=== PATIENT | male | born 1985 | race Caucasian/White ===

== ENCOUNTER 2017-04-12 16:31 | Emergency (ER) | payer SELFPAY ==
[~2017-04-12] VITALS: Ht 172.7 cm; Wt 120.2 kg
[2017-04-12] MEDS ORDERED: LORATADINE 10MG10 M1 PO (16:42)
[2017-04-12] MEDS ORDERED: QUETIAPINE FUMA50 MG PO (16:43)
[2017-04-12] MEDS ORDERED: SERTRALINE 100100 MG PO (16:43)
[2017-04-12] MEDS ORDERED: WELLBUTRIN 150150 MG PO (16:43)
[2017-04-12] MEDS ORDERED: CYCLOBENZAPRINE10 MG PO (16:44)
[2017-04-12] MEDS ORDERED: LISINOPRIL/HCTZ1 TA3 FT (16:44)
--- NOTE | 2017-04-12 16:55 | Emergency Room Report ---
History of Present Illness Time Seen by [id number] Presenting Problem in Triage Pt arrived:Walked Presenting Problem:PT WAS DIAGNOSED WITH SHINGLES LAST WEEK AND ADVISES THEY ARE NOW GOING ONTO HIS FACE AND INTO HIS RIGHT EYE Onset of symptoms date/time:/ or onset unknown for:MEDICAL HX UNKNOWN Treatment Prior to Arrival: [facility] Provided by: Sepsis Risk Assessment: Temp: 98.1 B/P: 156/100 MAP: 118 Pulse: 113 Resp: 16 Recent fever? N Clinical Suspician of Infection? N Mental Status: 1 - Regular (Normal Baseline) Sepsis Risk:Low Sepsis Risk Have you (or family members/close friends) recently traveled outside the [place]? N If Yes, where/when: Have you had exposure to infectious disease within the past month? N TB? Other? Specify: Drainage from right eye with pain x one week; diagnosed with shingles last week. No prescriptions currently. Wears glasses. ALLERGIES Coded Allergies: cefaclor (From CECLOR) (Mild, 04/12/17) Home Medications Reported Medications Loratadine (Loratadine 10MG Tablet) 10 MG PO DAILY Sertraline Hydrochloride (Sertraline 100MG) 100 MG PO DAILY Bupropion HCl (Bupropion HCl Sr 150mg) 150 MG PO BID Quetiapine Fumarate (Quetiapine 50MG) 50 MG PO DAILY Cyclobenzaprine Hcl (Cyclobenzaprine 10MG) 10 MG PO BID Lisinopril & Hctz (Lisinopril-Hctz 10-12.5 MG Tab) 1 TAB FT DAILY History Medical History General CAD? No Angina: No [place]: No Hypertension? No Hyperlipidemia? No CHF? No DVT? No PE? No COPD? No Asthma? No Anemia? No GERD? No Gastric ulcers? No GI Bleed? No Hernia? No Thyroid Problems? No Hypothyroidism? No CVA? No Seizures? No Diabetes? No Renal Insuffiency? No End Stage Renal Disease? No UTI? No Stones? No BPH? No GB Disease: No Nephritic Syndrome? No Asplenia? No Hepatitis? No Sickle Cell Disease? No Arthritis? No Migraines? No Cataracts? No Glaucoma? No MRSA? No HIV? No TB? No Anxiety? No Depression? No Cancer? No More? No Immunization Hx DT/Tetanus 1-4 Years Ago Surgical Hx Previous Surgery?Y RIGHT FOOT Social History Smoking Hx Smoker: Current Every Day Smoker Tobacco: Yes Type Cigarettes Alcohol Alcohol: No Review of Systems All Other Systems Reviewed and Negative Eyes drainage, photophobia Physical Exam Vital Signs Vital Signs Date Time Temp Pulse Resp B/P Pulse O2 O2 Flow FiO2 Ox Delivery Rate 04/12 1702 16 04/12 1639 98.1 113 16 156/100 97 General Appearance normal appearance, WD/WN, mild distress Eye Exam - right eye eyelid inflammation, right eye photophobia, right eye other ( injected; cloudy,no dendrites), bilateral eye PERRL, bilateral eye EOMI Ear, Nose, Throat hearing grossly normal, obvious confluent vesicles over R V1/ Trigeminal nerve distribution c/w acute varicella zoster with lid and ocular involvement. No secondary infection noted. Neck normal inspection, non-tender, supple Respiratory Status Yes: trachea midline. No: respiratory distress. 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 Yes Vaibhav was queried for this patient? Yes Reference #: [id number] Risks/benefits of using a controlled substance for treatment were discussed w/pt by me Results/Orders Current Medication Orders Sig/Rg Start time Last Medication Dose Route Stop Time Status Admin Hydrocodone Bitart/ 0 .STK-MED ONE 04/12 1703 DC Acetaminophen PO Fluorescein Sodium 1 EACH ONCE ONE 04/12 170 DC 04/12 OP 04/12 170 1701 Hydrocodone Bitart/ 1 TAB ONCE ONE 04/12 1700 DC 04/12 Acetaminophen PO 04/12 170 1702 Tetracaine HCl See Dose ONCE ONE 04/12 1700 DC 04/12 Insts (1) OP 04/12 1701 1701 Miscellaneous 0 .STK-MED ONE 04/12 1646 DC XX Dose Instructions: (1)Tetracaine HCl: DOSE = 1 - 2 DROPS Consult MD Physician Consult Time Called 1702 Reason Pt. Condition, Opthalmology eval/care Comments Dr. Lim optometry will see emergently now in his office. Departure Departure Time of Disposition 1706 Disposition DC Home or Self Care(routine) Clinical Impression Primary Impression: Varicella keratitis Secondary Impressions: Shingles Qualifiers: Herpes zoster complications: with ocular involvement Herpes zoster ocular complication detail: conjunctivitis Qualified Code: B02.31 - Zoster conjunctivitis Condition STABLE Patient Instructions Shingles Additional Instructions Valtrex, Lortab for pain, go to [facility] to see Dr. Lim RIGHT NOW due to eye involvement. This needs to be addressed RIGHT NOW. Discharge Counseling Counseled pt/family regarding diagnosis, medications/RX, home care, follow up needs Prescriptions Current Visit Scripts HYDROCODONE/ACETAMINOPHEN (Lortab 10-325 (generic) Tablet) 1-2 TAB PO Q6HP PRN PAIN #20 TAB VALACYCLOVIR HCL (Valtrex) 500 MG PO TID #30 TAB Ref 1 ED Critical Care Critical Care No at 1710
--- NOTE | 2017-04-12 16:55 | Emergency Room Report ---
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 N Clinical Suspician of Infection? N Mental Status: 1 - Regular (Normal Baseline) Sepsis Risk:Low Sepsis Risk Have you (or family members/close friends) recently traveled outside the [place]? N If Yes, where/when: Have you had exposure to infectious disease within the past month? N TB? Other? Specify: Drainage from right eye with pain x one week; diagnosed with shingles last week. No prescriptions currently. Wears glasses. ALLERGIES Coded Allergies: cefaclor (From CECLOR) (Mild, 04/12/17) Home Medications Reported Medications Loratadine (Loratadine 10MG Tablet) 10 MG PO DAILY Sertraline Hydrochloride (Sertraline 100MG) 100 MG PO DAILY Bupropion HCl (Bupropion HCl Sr 150mg) 150 MG PO BID Quetiapine Fumarate (Quetiapine 50MG) 50 MG PO DAILY Cyclobenzaprine Hcl (Cyclobenzaprine 10MG) 10 MG PO BID Lisinopril & Hctz (Lisinopril-Hctz 10-12.5 MG Tab) 1 TAB FT DAILY History Medical History General CAD? No Angina: No VA: No Hypertension? No Hyperlipidemia? No CHF? No DVT? No PE? No COPD? No Asthma? No Anemia? No GERD? No Gastric ulcers? No GI Bleed? No Hernia? No Thyroid Problems? No Hypothyroidism? No CVA? No Seizures? No Diabetes? No Renal Insuffiency? No End Stage Renal Disease? No UTI? No Stones? No BPH? No GB Disease: No Nephritic Syndrome? No Asplenia? No Hepatitis? No Sickle Cell Disease? No Arthritis? No Migraines? No Cataracts? No Glaucoma? No MRSA? No HIV? No TB? No Anxiety? No Depression? No Cancer? No More? No Immunization Hx DT/Tetanus 1-4 Years Ago Surgical Hx Previous Surgery?Y RIGHT FOOT Social History Smoking Hx Smoker: Current Every Day Smoker Tobacco: Yes Type Cigarettes Alcohol Alcohol: No Review of Systems All Other Systems Reviewed and Negative Eyes drainage, photophobia Physical Exam Vital Signs Vital Signs Date Time Temp Pulse Resp B/P Pulse O2 O2 Flow FiO2 Ox Delivery Rate 04/12 1702 16 04/12 1639 98.1 113 16 156/100 97 General Appearance normal appearance, WD/WN, mild distress Eye Exam - right eye eyelid inflammation, right eye photophobia, right eye other ( injected; cloudy,no dendrites), bilateral eye PERRL, bilateral eye EOMI Ear, Nose, Throat hearing grossly normal, obvious confluent vesicles over R V1/ Trigeminal nerve distribution c/w acute varicella zoster with lid and ocular involvement. No secondary infection noted. Neck normal inspection, non-tender, supple Respiratory Status Yes: trachea midline. No: respiratory distress. 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 Yes Vaibhav was queried for this patient? Yes Reference #: [id number] Risks/benefits of using a controlled substance for treatment were discussed w/pt by me Results/Orders Current Medication Orders Sig/Rg Start time Last Medication Dose Route Stop Time Status Admin Hydrocodone Bitart/ 0 .STK-MED ONE 04/12 1703 DC Acetaminophen PO Fluorescein Sodium 1 EACH ONCE ONE 04/12 170 DC 04/12 OP 04/12 170 1701 Hydrocodone Bitart/ 1 TAB ONCE ONE 04/12 1700 DC 04/12 Acetaminophen PO 04/12 170 1702 Tetracaine HCl See Dose ONCE ONE 04/12 1700 DC 04/12 Insts (1) OP 04/12 1701 1701 Miscellaneous 0 .STK-MED ONE 04/12 1646 DC XX Dose Instructions: (1)Tetracaine HCl: DOSE = 1 - 2 DROPS Consult MD Physician Consult Time Called 1702 Reason Pt. Condition, Opthalmology eval/care Comments Dr. Lim optometry will see emergently now in his office. Departure Departure Time of Disposition 1706 Disposition DC Home or Self Care(routine) Clinical Impression Primary Impression: Varicella keratitis Secondary Impressions: Shingles Qualifiers: Herpes zoster complications: with ocular involvement Herpes zoster ocular complication detail: conjunctivitis Qualified Code: B02.31 - Zoster conjunctivitis Condition STABLE Patient Instructions Shingles Additional Instructions Valtrex, Lortab for pain, go to [facility] to see Dr. Lim RIGHT NOW due to eye involvement. This needs to be addressed RIGHT NOW. Discharge Counseling Counseled pt/family regarding diagnosis, medications/RX, home care, follow up needs Prescriptions Current Visit Scripts HYDROCODONE/ACETAMINOPHEN (Lortab 10-325 (generic) Tablet) 1-2 TAB PO Q6HP PRN PAIN #20 TAB VALACYCLOVIR HCL (Valtrex) 500 MG PO TID #30 TAB Ref 1 ED Critical Care Critical Care No at 1718
[2017-04-12] MEDS ORDERED: HYDROCODONE/ACE1 TA5 PO (17:09)
[2017-04-12] MEDS ORDERED: VALTREX500 MG PO (17:10)
[2017-04-12 17:15] VITALS: BP 156/100
--- OUTSIDE RECORDS SUMMARY | 2017-04-12 17:15 | External Medical Summary Rpt | CCD ---
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 Name Role Phone [facility] Unavailable Unavailable [facility]ORATORY [facility], [facility] Unavailable Un[facility], PEND[facility] SALE TO [facility] Unavailable Unavailable [facility]STIC SE, [facility] Unavailable Unavailable TRANSPORTATION SER, [facility] Unavailable Unavailable HOLDINGS, [facility] DIANE BURLESON, Unavailable Unavailable DIANE BURLESON [facility], Unavailable Unavailable [facility] Unavailable Unavailable DAY [facility], [facility] Unavailable Unavailable #5, [facility] Purpose Continuity of Care Document - 06-09-2007 through 2016 Problems Code Diagnosis DOS Provider Status [id number] SPONDYLOSIS 01-04-2017 [facility] W/O H MYELOPATH/R ORTHOPAEDIC ADICULOPATH RADHA Y LUMB RGN M4806 SPINAL 01-04-2017 [facility] STENOSIS H LUMBAR [facility]IC REGION RADHA M545 LOW BACK 01-04-2017 [facility] PAIN H ORTHOPAEDIC RADHA R69 ILLNESS 01-04-2017 [facility] UNSPECIFIED TRANSPORTAT ION SER [id number] ELEVATED 12-17-2016 [facility] WHITE BLOOD TEGAN CELL COUNT HOLDINGS UNSPECIFIED G8929 OTHER 12-17-2016 [facility] CHRONIC TEGAN PAIN HOLDINGS Z139 ENCOUNTER 12-17-2016 [facility] FOR TEGAN SCREENING HOLDINGS UNSPECIFIED 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 [facility] R569 UNSPECIFIED 10-14-2016 [facility] DAY [facility] [id number] STRAIN 09-15-2016 [facility] MUSCLE H FASCIA & ORTHOPAEDIC TENDON LOW CTR BACK SUBSQT [id number] STRAIN 09-11-2016 [facility] MUSCLE H FASCIA & ORTHOPAEDIC TENDON LOW CTR BACK INITIAL Z6838 BODY MASS 06-23-2016 [facility] INDEX BMI [place] 38.0-38.9 LLC ADULT M546 PAIN IN 06-18-2016 [facility] SPINE DIAGNOSTIC SE I10 ESSENTIAL 06-16-2016 [facility] PRIMARY [place] HYPERTENSIO LLC N G4700 INSOMNIA 04-21-2016 [facility] UNSPECIFIED [facility] [id number] MUSCLE 03-11-2016 [facility] SPASM OF [place] BACK LLC R0600 DYSPNEA 03-11-2016 [facility] UNSPECIFIED [facility] [id number] OTHER LONG 02-05-2016 [facility] TERM [place] CURRENT LLC DRUG THERAPY Z720 TOBACCO USE 01-17-2016 [facility] [place] LLC Z0000 ENCOUNTER 10-10-2015 [facility] GEN ADULT [place] MED EXAM [facility] W/O ABNORMAL FIND E669 OBESITY 09-05-2015 [facility] UNSPECIFIED [facility]INGS R1030 LOWER 07-15-2015 [facility] ABDOMINAL [facility] PAIN LABORATORY UNSPECIFIED IN R5381 OTHER 06-05-2015 [facility] MALAISE [facility] 2959 UNSPECIFIED 03-06-2015 [facility] ADULT DAY IA CARE 79093 PAIN IN 06-09-2007 SARAH BETH, JOINT, DIANE F [facility] Medications Na ND Rx Da Fi Fi Am Da Di Ph RX Ph St me C No te ll ll ou ys ag ar # ys at rm s nt no ma ic us Or Da si cy ia de te s n re d LO 16 07 09 6 30 30 TO 95 MO Ac RA 71 -2 -2 0. TA 72 RT ti TA 40 6- 5- 00 L 68 ON ve DI 48 20 20 0 CA NE 20 17 17 RE RO 3 BI 10 PH N AR L MG MA CY TA BL #5 ET LO 16 07 08 6 30 30 TO 95 MO Ac RA 71 -2 -2 0. TA 72 RT ti TA 40 6- 3- 00 L 68 ON ve DI 48 20 20 0 CA NE 20 17 17 RE RO 3 BI 10 PH N AR L MG MA CY TA BL #5 ET LO 16 07 07 6 30 30 TO 95 MO Ac RA 71 -2 -2 0. TA 72 RT ti TA 40 6- 6- 00 L 68 ON ve DI 48 20 20 0 CA NE 20 17 17 RE RO 3 BI 10 PH N AR L MG MA CY TA BL #5 ET LO 16 01 06 6 30 30 TO 93 MO Ac RA 71 -1 -3 0. TA 84 RT ti TA 40 7- 0- 00 L 28 ON ve DI 48 20 20 0 CA NE 20 17 17 RE RO 3 BI 10 PH N AR L MG MA CY TA BL #5 ET LO 16 01 05 6 30 30 TO 93 MO Ac RA 71 -1 -3 0. TA 84 RT ti TA 40 7- 0- 00 L 28 ON ve DI 48 20 20 0 CA NE 20 17 17 RE RO 3 BI 10 PH N AR L MG MA CY TA BL #5 ET LO 16 01 05 6 30 30 TO 93 MO Ac RA 71 -1 -0 0. TA 84 RT ti TA 40 7- 3- 00 L 28 ON ve DI 48 20 20 0 CA NE 20 17 17 RE RO 3 BI 10 PH N AR L MG MA CY TA BL #5 ET LO 16 01 04 6 30 30 TO 93 MO Ac RA 71 -1 -0 0. TA 84 RT ti TA 40 7- 7- 00 L 28 ON ve DI 48 20 20 0 CA NE 20 17 17 RE RO 3 BI 10 PH N AR L MG MA CY TA BL #5 ET LO 16 01 03 6 30 30 TO 93 MO Ac RA 71 -1 -1 0. TA 84 RT ti TA 40 7- 4- 00 L 28 ON ve DI 48 20 20 0 CA NE 20 17 17 RE RO 3 BI 10 PH N AR L MG MA CY TA BL #5 ET LO 16 01 02 6 30 30 TO 93 MO Ac RA 71 -1 -1 0. TA 84 RT ti TA 40 7- 4- 00 L 28 ON ve DI 48 20 20 0 CA NE 20 17 17 RE RO 3 BI 10 PH N AR L MG MA CY TA BL #5 ET LO 16 01 01 6 30 30 TO 93 MO Ac RA 71 -1 -1 0. TA 84 RT ti TA 40 7- 7- 00 L 28 ON ve DI 48 20 20 0 CA NE 20 17 17 RE RO 3 BI 10 PH N AR L MG MA CY TA BL #5 ET LO 16 07 11 6 28 28 TO 92 MO Ac RA 71 -1 -3 0. TA 05 RT ti TA 40 1- 0- 00 L 40 ON ve DI 48 20 20 0 CA NE 20 16 16 RE RO 3 BI 10 PH N AR L MG MA CY TA BL #5 ET LO 16 07 08 6 10 1 TO 92 MO Ac RA 71 -1 -3 .0 TA 05 RT ti TA 40 1- 1- 00 L 40 ON ve DI 48 20 20 CA NE 20 16 16 RE RO 3 BI 10 PH N AR L MG MA CY TA BL #5 ET LO 16 07 08 6 30 30 TO 92 MO Ac RA 71 -1 -0 0. TA 05 RT ti TA 40 1- 4- 00 L 40 ON ve DI 48 20 20 0 CA NE 20 16 16 RE RO 3 BI 10 PH N AR L MG MA CY TA BL #5 ET LO 16 07 07 6 28 26 TO 92 MO Ac RA 71 -1 -1 0. TA 05 RT ti TA 40 1- 1- 00 L 40 ON ve DI 48 20 20 0 CA NE 20 16 16 RE RO 3 BI 10 PH N AR L MG MA CY TA BL #5 ET LO 16 01 06 5 28 28 TO 90 MO Ac RA 71 -2 -1 0. TA 47 RT ti TA 40 8- 0- 00 L 38 ON ve DI 48 20 20 0 CA NE 20 16 16 RE RO 3 BI 10 PH N AR L MG MA CY TA BL #5 ET LO 16 01 05 5 28 28 TO 90 MO Ac RA 71 -2 -1 0. TA 47 RT ti TA 40 8- 1- 00 L 38 ON ve DI 48 20 20 0 CA NE 20 16 16 RE RO 3 BI 10 PH N AR L MG MA CY TA BL #5 ET LO 45 01 04 5 28 28 TO 90 MO Ac RA 80 -2 -1 0. TA 47 RT ti TA 20 8- 6- 00 L 38 ON ve DI 65 20 20 0 CA NE 08 16 16 RE RO 7 BI 10 PH N AR L MG MA CY TA BL #5 ET LO 45 01 03 5 28 28 TO 90 MO Ac RA 80 -2 -1 0. TA 47 RT ti TA 20 8- 9- 00 L 38 ON ve DI 65 20 20 0 CA NE 08 16 16 RE RO 7 BI 10 PH N AR L MG MA CY TA BL #5 ET LO 45 01 02 5 28 28 TO 90 MO Ac RA 80 -2 -2 0. TA 47 RT ti TA 20 8- 0- 00 L 38 ON ve DI 65 20 20 0 CA NE 08 16 16 RE RO 7 BI 10 PH N AR L MG MA CY TA BL #5 ET LO 45 01 01 5 28 5 TO 90 MO Ac RA 80 -2 -2 0. TA 47 RT ti TA 20 8- 8- 00 L 38 ON ve DI 65 20 20 0 CA NE 08 16 16 RE RO 7 BI 10 PH N AR L MG MA CY TA BL #5 ET LO 45 09 12 3 28 28 TO 89 MO Ac RA 80 -0 -2 0. TA 14 RT ti TA 20 8- 3- 00 L 49 ON ve DI 65 20 20 0 CA NE 08 15 15 RE RO 7 BI 10 PH N AR L MG MA CY TA BL #5 ET LO 45 09 11 3 28 28 TO 89 MO Ac RA 80 -0 -2 0. TA 14 RT ti TA 20 8- 7- 00 L 49 ON ve DI 65 20 20 0 CA NE 08 15 15 RE RO 7 BI 10 PH N AR L MG MA CY TA BL #5 ET LO 45 09 10 3 28 28 TO 89 MO Ac RA 80 -0 -3 0. TA 14 RT ti TA 20 8- 1- 00 L 49 ON ve DI 65 20 20 0 CA NE 08 15 15 RE RO 7 BI 10 PH N AR L MG MA CY TA BL #5 ET LO 45 09 09 3 30 30 TO 89 MO Ac RA 80 -2 -2 0. TA 14 RT ti TA 20 1- 1- 00 L 49 ON ve DI 65 20 20 0 CA NE 08 15 15 RE RO 7 BI 10 PH N AR L MG MA CY TA BL #5 ET LO 45 08 08 0 30 30 TO 89 MO Ac RA 80 -2 -2 0. TA 05 RT ti TA 20 8- 8- 00 L 19 ON ve DI 65 20 20 0 CA NE 08 15 15 RE RO 7 BI 10 PH N AR L MG MA CY TA BL #5 ET
--- OUTSIDE RECORDS SUMMARY | 2017-04-12 17:15 | External Medical Summary Rpt | CCD ---
Author Author , LUZ MARIA LOERA Address Unknown Phone [email or web address] Care Team Providers Care Roll Edge Machine Operator Name Role Phone [facility] Unavailable Unavailable LABORATORY IN, [facility] Unavailable Un[facility], [facility] Unavailable Unavailable DIAGNOSTIC SE, [facility] Unavailable Unavailable TRANSPORTATION SER, [facility] Unavailable Unavailable HOLDINGS, [facility] DIANE BURLESON, Unavailable Unavailable DIANE BURLESON [facility], Unavailable Unavailable [facility] Unavailable Unavailable DAY CARE, [facility] Unavailable Unavailable #5, [facility] Purpose Continuity of Care Document - 06-09-2007 through 2016 Problems Code Diagnosis DOS Provider Status [id number] SPONDYLOSIS 01-04-2017 [facility] W/O H MYELOPATH/R ORTHOPAEDIC ADICULOPATH RADHA Y LUMB RGN M4806 SPINAL 01-04-2017 [facility] STENOSIS H LUMBAR [facility]THOPAEDIC REGION RADHA M545 LOW BACK 01-04-2017 [facility] PAIN H ORTHOPAEDIC RAHDA R69 ILLNESS 01-04-2017 [facility] UNSPECIFIED TRANSPORTAT ION SER R38691 ELEVATED 12-17-2016 [facility] WHITE BLOOD TEGAN CELL COUNT HOLDINGS UNSPECIFIED G8929 OTHER 12-17-2016 [facility] CHRONIC TEGAN PAIN HOLDINGS Z139 ENCOUNTER 12-17-2016 [facility] FOR TEGAN SCREENING HOLDINGS UNSPECIFIED 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 [facility] CTR R569 UNSPECIFIED 10-14-2016 [facility] CON[facility] ADULT DAY CARE [id number] STRAIN 09-15-2016 [facility] MUSCLE H FASCIA & ORTHOPAEDIC TENDON LOW CTR BACK SUBSQT [id number] STRAIN 09-11-2016 [facility] MUSCLE H FASCIA & ORTHOPAEDIC TENDON LOW CTR BACK INITIAL Z6838 BODY MASS 06-23-2016 [facility] INDEX BMI [place] 38.0-38.9 LLC ADULT M546 PAIN IN 06-18-2016 [facility] SPINE DIAGNOSTIC SE I10 ESSENTIAL 06-16-2016 [facility] PRIMARY [place] HYPERTENSIO LLC N G4700 INSOMNIA 04-21-2016 [facility] UNSPECIFIED [facility] [id number] MUSCLE 03-11-2016 [facility] SPASM OF [place] BACK LLC R0600 DYSPNEA 03-11-2016 [facility] UNSPECIFIED [facility] [id number] OTHER LONG 02-05-2016 [facility] TERM [place] CURRENT LLC DRUG THERAPY Z720 TOBACCO USE 01-17-2016 [facility] [place] LLC Z0000 ENCOUNTER 10-10-2015 [facility] GEN ADULT [place] MED EXAM [facility] W/O ABNORMAL FIND E669 OBESITY 09-05-2015 LAB [facility] UNSPECIFIED [facility] R1030 LOWER 07-15-2015 [facility] ABDOM[facility]AL [facility] PAIN LABORATORY UNSPECIFIED IN R5381 OTHER 06-05-2015 [facility] MALAISE [facility] 2959 UNSPECIFIED 03-06-2015 [facility] ADULT DAY IA CARE 55051 PAIN IN 06-09-2007 SARAH BETH, JOINT, DIANE [...]
--- OUTSIDE RECORDS SUMMARY | 2017-04-12 17:15 | External Medical Summary Rpt | CCD ---
Author Author , LUZ MARIA LOERA Address Unknown Phone [email or web address] Care Team Providers Care Refinery Operator Coking Name Role Phone [facility] Unavailable Unavailable LABORATORY IN, [facility] Unavailable Unavailable [facility], [facility] Unavailable Unavailable DIAGNOSTIC SE, [facility] Unavailable Unavailable TRANSPORTATION SER, [facility] Unavailable Unavailable HOLDINGS, [facility]INGS DIANE BURLESON, Unavailable Unavailable DIANE BURLESON [facility], Unavailable Unavailable [facility]IN [facility] Unavailable Unavailable DAY CARE, [facility] Unavailable Unavailable #5, [facility] Purpose Continuity of Care Document - 06-09-2007 through 2016 Problems Code Diagnosis DOS Provider Status [id number] SPONDYLOSIS 01-04-2017 [facility] W/O H MYELOPATH/R ORTHOPAEDIC ADICULOPATH RADHA Y LUMB RGN M4806 SPINAL 01-04-2017 [facility] STENOSIS H LUMBAR ORTHOPAEDIC REGION RADHA M545 LOW BACK 01-04-2017 [facility] PAIN H ORTHOPAEDIC RADHA R69 ILLNESS 01-04-2017 [facility] UNSPECIFIED TRANSPORTAT ION SER O68039 ELEVATED 12-17-2016 [facility] WHITE BLOOD TEGAN CELL COUNT HOLDINGS UNSPECIFIED G8929 OTHER 12-17-2016 LAB [facility] CHRONIC TEGAN PAIN HOLDINGS Z139 ENCOUNTER 12-17-2016 LAB [facility] FOR TEGAN SCREENING HOLDINGS UNSPECIFIED 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 [facility]IC CTR R569 UNSPECIFIED 10-14-2016 [facility]ULT DAY CARE [id number] STRAIN 09-15-2016 [facility] MUSCLE H FASCIA & ORTHOPAEDIC TENDON LOW CTR BACK SUBSQT [id number] STRAIN 09-11-2016 [facility] MUSCLE H FASCIA & ORTHOPAEDIC TENDON LOW CTR BACK INITIAL Z6838 BODY MASS 06-23-2016 [facility] INDEX BMI [place] 38.0-38.9 LLC ADULT M546 PAIN IN 06-18-2016 [facility] SPINE DIAGNOSTIC SE I10 ESSENTIAL 06-16-2016 [facility] PRIMARY [place] HYPERTENSIO LLC N G4700 INSOMNIA 04-21-2016 [facility] UNSPECIFIED [facility] Z84066 MUSCLE 03-11-2016 [facility] SPASM OF [place] BACK LLC R0600 DYSPNEA 03-11-2016 [facility] UNSPECIFIED [facility] X52504 OTHER LONG 02-05-2016 [facility] TERM [place] CURRENT LLC DRUG THERAPY Z720 TOBACCO USE 01-17-2016 [facility] Z0000 ENCOUNTER 10-10-2015 [facility] GEN ADULT [place] MED EXAM LLC W/O ABNORMAL FIND E669 OBESITY 09-05-2015 LAB [facility] UNSPECIFIED [facility] HOLDINGS R1030 LOWER 07-15-2015 [facility] ABDOMINAL [facility]ICAL PAIN LABORATORY UNSPECIFIED IN R5381 OTHER 06-05-2015 [facility] MALAISE [facility] 2959 UNSPECIFIED 03-06-2015 [facility] ADULT DAY IA CARE 38424 PAIN IN 06-09-2007 SARAH BETH, JOINT, DIANE [...]
--- OUTSIDE RECORDS SUMMARY | 2017-04-12 17:15 | External Medical Summary Rpt | CCD ---
Author Author , LUZ MARIA LOERA Address Unknown Phone [email or web address] Providers Care Home Restoration Service Supervisor Name Role Phone [facility], [facility] Un[facility], [facility], [facility] Unavailable [facility]available [facility], [facility] Unavailable Unavailable [facility], [facility] Unavailable Unavailable [facility], [facility] DIANE BURLESON, Unavailable Unavailable DIANE BURLESON [facility], Unavailable Unavailable MARTIN [facility] Unavailable [facility]available DAY CARE, [facility] Unavailable Unavailable #[facility], [facility] Purpose Continuity of Care Document - 06-09-2007 through 2016 Problems Code Diagnosis DOS Provider Status [id number] SPONDYLOSIS 01-04-2017 [facility] W/O H MYELOPATH/R ORTHOPAEDIC ADICULOPATH RAD[facility] Y LUMB RGN M4806 SPINAL 01-04-2017 [facility] STENOSIS H LUMBAR [facility]IC REGION [facility] M545 LOW BACK 01-04-2017 [facility] PAIN H [facility] R69 ILLNESS 01-04-2017 [facility] UNSPECIFIED TRANSPORTAT ION SER U13893 ELEVATED 12-17-2016 [facility] WHITE BLOOD TEGAN CELL COUNT [facility] UNSPECIFIED G8929 OTHER 12-17-2016 [facility] CHRONIC TEGAN PAIN HOLDINGS Z139 ENCOUNTER 12-17-2016 [facility] FOR TEGAN SCREENING HOLDINGS UNSPECIFIED 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 [facility]OP[facility]EDIC CTR R569 UNSPECIFIED 10-14-2016 [facility] ADULT DAY CARE [id number] STRAIN 09-15-2016 [facility] MUSCLE H FASCIA & ORTHOPAEDIC TENDON LOW CTR BACK SUBSQT [id number] STRAIN 09-11-2016 [facility] MUSCLE H FASCIA & ORTHOPAEDIC TENDON LOW CTR BACK INITIAL Z6838 BODY MASS 06-23-2016 [facility] INDEX [facility] [place] 38.0-38.9 [facility] ADULT M546 PAIN IN 06-18-2016 [facility]NO[facility] SE I10 ESSENTIAL 06-16-2016 [facility] PRIMARY [place] [facility]YP[facility]EN[facility] N G4700 INSOMNIA 04-21-2016 [facility] UNSPECIFIED [facility] D73168 MUSCLE 03-11-2016 [facility] [place] BACK [facility] R0600 DYSPNEA 03-11-2016 [facility] UNSPECIFIED [facility] L31161 OTHER LONG 02-05-2016 [facility] TERM [place] [facility] DRUG THERAPY Z720 TOBACCO USE 01-17-2016 [facility] Z0000 ENCOUNTER 10-10-2015 [facility] GEN ADULT [place] [facility] W/O ABNORMAL FIND E669 OBESITY 09-05-2015 [facility] UNSPECIFIED [facility] R1030 LOWER 07-15-2015 [facility] ABDOMINAL [facility]ICAL PAIN LABORATORY UNSPECIFIED IN R5381 OTHER 06-05-2015 [facility] MALAISE [facility] 2959 UNSPECIFIED 03-06-2015 [facility]ULT DAY [facility] CARE 38751 PAIN IN 06-09-2007 SARAH BETH, JOINT, DIANE [...]
--- OUTSIDE RECORDS SUMMARY | 2017-04-12 17:16 | External Medical Summary Rpt | CCD ---
Demographics Preferred Language [place]ian Marital Status Unknown Spiritism Affiliation Unknown Race Unknown Ethnic Group Unknown Author Author , LUZ MARIA LOERA Address Unknown Phone luz Immunization Unable to retrieve immunization data due to connection failure with Immunization Registry. Please try again later.
--- OUTSIDE RECORDS SUMMARY | 2017-04-12 17:16 | External Medical Summary Rpt ---
Author Author [employer], [employer] Organization [employer] Address Unknown Phone Unavailable Results ETHANOL Observa Value Referen Units Interpr Notes Date tion ce etation Range SERUM No No No No Feb 24 informa informa informa informa 2013 tion in tion in tion in tion in 4:05 AM source source source source data data data data ETHANOL <10 0 - 10 mg/dL No This Feb 24 QUANT informa test is 2013 in for 4:05 AM source clinica data l use only COLLECT ROSELIA No No No No Feb 24 ED BY N informa informa informa informa 2013 tion in tion in tion in tion in 4:05 AM source source source source data data data data TECH ID ALISE No No No No Feb 28 AMP informa informa informa informa 2013 tion in tion in tion in tion in 4:05 AM source source source source data data data data DRUG SCREEN URINE CAROLE Observa Value Referen Units Interpr Notes Date tion ce etation Range URINE No No No No Feb 24 informa informa informa informa 2013 tion in tion in tion in tion in 4:05 AM source source source source data data data data AMPHETA NEGATIV NEGATIV No No No Feb 28 MINES E E informa informa informa 2013 tion in tion in tion in 4:05 AM source source source data data data BARBITU NEGATIV NEGATIV No No No Feb 24 RATES E E informa informa informa 2013 tion in tion in tion in 4:05 AM source source source data data data COCAINE NEGATIV NEGATIV No No No Feb 24 METAB E E informa informa informa 2013 tion in tion in tion in 4:05 AM source source source data data data OPIATES NEGATIV NEGATIV No No No Feb 24 E E informa informa informa 2013 tion in tion in tion in 4:05 AM source source source data data data BENZODI NEGATIV NEGATIV No No No Feb 24 AZEPINE E E informa informa informa 2013 S tion in tion in tion in 4:05 AM source source source data data data OXYCODO NEGATIV NEGATIV No No No Feb 28 NE E E informa informa informa 2013 tion in tion in tion in 4:05 AM source source source data data data CANNABI SCREEN NEGATIV No No No Feb 24 NOIDS + E informa informa informa 2013 tion in tion in tion in 4:05 AM source source source data data data METHADO NEGATIV NEGATIV No No * * * Feb 28 NE E E informa informa CAROLE 2013 ti in ti in DRUG 4:05 AM source source SCREEN data data TESTING * * SCREEN+ indicat es Presump tive Positiv e *Presum ptive Positiv e results are not confirm ed by GCMS.Th e submitt ed specime n was tested for the presenc e of the followi ngsubst ances at or above the indicat ed detecti on limit.A ll cutoffs are measure d in ng/ml:A mphetam gregorio >500 Barbitu rates >200 Benzodi azepine s >100Can nabinoi ds >100 Cocaine >150 Opiates >300Oxy codone >100 Methado ne >300Res ults for clinica l use only. DRUG SCREEN URINE CAROLE Observa Value Referen Units Interpr Notes Date tion ce etation Range URINE No No No No Sep 9 informa informa informa informa 2013 tion in tion in tion in ti in 7:40 PM source source source source data data data data AMPHETA NEGATIV NEGATIV No No No Sep 9 MINES E E informa informa informa 2013 tion in tion in ti in 7:40 PM source source source data data data BARBITU NEGATIV NEGATIV No No No Sep 9 RATES E E informa informa informa 2013 ti in tion in ti in 7:40 PM source source source data data data COCAINE NEGATIV NEGATIV No No No Sep 9 METAB E E informa informa informa 2013 ti in tion in ti in 7:40 PM source source source data data data OPIATES NEGATIV NEGATIV No No No Feb 9 E E informa informa informa 2013 tion in tion in tion in 7:40 PM source source source data data data BENZODI NEGATIV NEGATIV No No No Sep 9 AZEPINE E E informa informa informa 2013 S tion in tion in tion in 7:40 PM source source source data data data OXYCODO NEGATIV NEGATIV No No No Feb 13 NE E E informa informa informa 2013 tion in tion in tion in 7:40 PM source source source data data data CANNABI SCREEN NEGATIV No No No Sep 9 NOIDS + E informa informa informa 2013 tion in tion in ti in 7:40 PM source source source data data data METHADO NEGATIV NEGATIV No No * * * Feb 13 NE E E informa informa CAROLE 2013 ti in ti in DRUG 7:40 PM source source SCREEN data data TESTING * * SCREEN+ indicat es Presump tive Positiv e *Presum ptive Positiv e results are not confirm ed by GCMS.Th e submitt ed specime n was tested for the presenc e of the followi ngsubst ances at or above the indicat ed detecti on limit.A ll cutoffs are measure d in ng/ml:A mphetam gregorio >500 Barbitu rates >200 Benzodi azepine s >100Can nabinoi ds >100 Cocaine >150 Opiates >300Oxy codone >100 Methado ne >300Res ults for clinica l use only. ETHANOL Observa Value Referen Units Interpr Notes Date tion ce etation Range SERUM No No No No Feb 13 informa informa informa informa 2013 tion in tion in tion in ti in 7:36 PM source source source source data data data data ETHANOL <10 0 - 10 mg/dL No This Sep 9 QUANT informa test is 2013 in for 7:36 PM source clinica data l use only COLLECT M. No No No No Feb 13 ED BY ESTEVAN informa informa informa informa 2013 tion in tion in tion in tion in 7:36 PM source source source source data data data data TECH ID P. No No No No Feb 13 HENDRIC informa informa informa informa 2013 H tion in tion in tion in tion in 7:36 PM source source source source data data data data DRUG SCREEN URINE CAROLE Observa Value Referen Units Interpr Notes Date tion ce etation Range URINE No No No No Jun 30 informa informa informa informa 2012 tion in tion in tion in tion in 12:20 source source source source AM data data data data AMPHETA NEGATIV NEGATIV No No No Jun 30 MINES E E informa informa informa 2012 tion in tion in tion in 12:20 source source source AM data data data BARBITU NEGATIV NEGATIV No No No Jun 30 RATES E E informa informa informa 2012 tion in tion in ti in 12:20 source source source AM data data data COCAINE NEGATIV NEGATIV No No No Jun 30 METAB E E informa informa informa 2012 tion in tion in tion in 12:20 source source source AM data data data OPIATES NEGATIV NEGATIV No No No Jun 30 E E informa informa informa 2012 tion in tion in ti in 12:20 source source source AM data data data BENZODI NEGATIV NEGATIV No No No Jun 30 AZEPINE E E informa informa informa 2012 S tion in tion in ti in 12:20 source source source AM data data data OXYCODO NEGATIV NEGATIV No No No Jun 30 NE E E informa informa informa 2012 tion in tion in tion in 12:20 source source source AM data data data CANNABI SCREEN NEGATIV No No No Jun 30 NOIDS + E informa informa informa 2012 tion in tion in tion in 12:20 source source source AM data data data METHADO NEGATIV NEGATIV No No * * * Jun 30 NE E E informa informa CAROLE 2012 tion in tion in DRUG 12:20 source source SCREEN AM data data TESTING * * SCREEN+ indicat es Presump tive Positiv e *Presum ptive Positiv e results are not confirm ed by GCMS.Th e submitt ed specime n was tested for the presenc e of the followi ngsubst ances at or above the indicat ed detecti on limit.A ll cutoffs are measure d in ng/ml:A mphetam gregorio >500 Barbitu rates >200 Benzodi azepine s >100Can nabinoi ds >100 Cocaine >150 Opiates >300Oxy codone >100 Methado ne >300Res ults for clinica l use only. ETHANOL Observa Value Referen Units Interpr Notes Date tion ce etation Range SERUM No No No No Mar 04 informa informa informa informa 2011 tion in tion in tion in tion in 5:50 AM source source source source data data data data ETHANOL <10 0 - 10 mg/dL No This Mar 04 QUANT informa test is 2012 tion in for 5:50 AM source clinica data l use only COLLECT A No No No No Mar 04 ED BY SAMMYL informa informa informa informa 2011 T tion in tion in tion in tion in 5:50 AM source source source source data data data data TECH ID T No No No No Mar 04 ANDERSO informa informa informa informa 2011 N tion in tion in tion in ti in 5:50 AM source source source source data data data data COMP METAB PANEL Observa Value Referen Units Interpr Notes Date ti ce etation Range PLASMA No No No No Mar 04 informa informa informa informa 2011 tion in tion in tion in tion in 5:50 AM source source source source data data data data SODIUM 148 137 - mmol/L No Mar 04 145 informa informa 2011 tion in tion in 5:50 AM source source data data POTASSI 4.2 3.5 - mmol/L No Mar 04 UM 5.1 informa informa 2011 tion in tion in 5:50 AM source source data data CHLORID 108 100 - mmol/L No No Mar 04 E 108 informa informa 2011 tion in tion in 5:50 AM source source data data CO2 26 22 - 30 mmol/L No No Mar 04 TOTAL informa informa 2011 tion in tion in 5:50 AM source source data data GLUCOSE 82 65 - mg/dL No No Mar 04 110 informa informa 2011 tion in tion in 5:50 AM source source data data BUN 16 7 - 20 mg/dL No No Mar 04 informa informa 2011 tion in tion in 5:50 AM source source data data CREATIN 0.9 0.7 - mg/dL No Mar 04 INE 1.4 informa informa 2011 tion in tion in 5:50 AM source source data data CALCIUM 9.4 8.4 - mg/dL No Mar 04 10.2 informa informa 2011 tion in tion in 5:50 AM source source data data ANION 13 7 - 15 mmol/L No Mar 04 GAP informa informa 2011 tion in tion in 5:50 AM source source data data ALK 72 38 - U/L No Mar 04 PHOS 126 informa informa 2011 tion in tion in 5:50 AM source source data data AST 31 10 - 50 U/L No Mar 04 (SGOT) informa informa 2011 tion in tion in 5:50 AM source source data data ALT 25 20 - 70 U/L No Mar 04 (SGPT) informa informa 2011 tion in tion in 5:50 AM source source data data TOT 0.6 0.2 - mg/dL No Mar 04 BILIRUB 1.0 informa informa 2011 IN tion in tion in 5:50 AM source source data data TOTAL 7.4 6.3 - g/dL No Mar 04 PROTEIN 8.2 informa informa 2011 tion in tion in 5:50 AM source source data data ALBUMIN 4.3 3.5 - g/dL No Mar 04 5.0 informa informa 2011 tion in ti in 5:50 AM source source data data GFR >90 No mL/min No This Mar 04 ESTIMAT informa informa eGFR is 2012 ED tion in tion in NOT 5:50 AM source source FOR data data DRUG DOSE ADJUSTM ENTStag e of Kidney Disease eGFR1 >=90 mL/min2 60-893 30-594 15-295 <=14The Estimat ed Glomeru lar Filtrat ion Ratebas ed on CKD-EPI adjuste d for age, sex,and race is validat ed for ages 18-70 years. DRUG SCREEN URINE CAROLE Observa Value Referen Units Interpr Notes Date tion ce etation Range URINE No No No No Mar 04 informa informa informa informa 2011 tion in tion in tion in tion in 5:50 AM source source source source data data data data AMPHETA NEGATIV NEGATIV No No No Mar 04 MINES E E informa informa informa 2011 tion in tion in tion in 5:50 AM source source source data data data BARBITU NEGATIV NEGATIV No No No Mar 04 RATES E E informa informa informa 2011 tion in tion in tion in 5:50 AM source source source data data data COCAINE NEGATIV NEGATIV No No No Mar 04 METAB E E informa informa informa 2011 tion in tion in tion in 5:50 AM source source source data data data OPIATES NEGATIV NEGATIV No No No Mar 04 E E informa informa informa 2011 tion in tion in tion in 5:50 AM source source source data data data BENZODI NEGATIV NEGATIV No No No Mar 04 AZEPINE E E informa informa informa 2011 S tion in tion in tion in 5:50 AM source source source data data data OXYCODO NEGATIV NEGATIV No No No Mar 04 NE E E informa informa informa 2011 tion in tion in tion in 5:50 AM source source source data data data CANNABI NEGATIV NEGATIV No No No Mar 04 NOIDS E E informa informa informa 2011 tion in tion in tion in 5:50 AM source source source data data data METHADO NEGATIV NEGATIV No No * * * Mar 04 NE E E informa informa CAROLE 2011 tion in tion in DRUG 5:50 AM source source SCREEN data data TESTING * * SCREEN+ indicat es Presump tive Positiv e *Presum ptive Positiv e results are not confirm ed by GCMS.Th e submitt ed specime n was tested for the presenc e of the followi ngsubst ances at or above the indicat ed detecti on limit.A ll cutoffs are measure d in ng/ml:A mphetam gregorio >500 Barbitu rates >200 Benzodi azepine s >100Can nabinoi ds >100 Cocaine >150 Opiates >300Oxy codone >100 Methado ne >300Res ults for clinica l use only. CBC WITH DIFF Observa Value Referen Units Interpr Notes Date tion ce etation Range WHOLEBL No No No No Mar 04 D informa informa informa informa 2012 tion in tion in tion in tion in 5:50 AM source source source source data data data data WBC 11.3 4.10 - Thou/mm No No Sep 28 10.80 3 informa informa 2012 tion in tion in 5:50 AM source source data data RBC 5.48 4.37 - Million No No Sep 28 5.74 /mm3 informa informa 2012 tion in tion in 5:50 AM source source data data HGB 15.9 13.7 - gm/dL No No Sep 28 17.5 informa informa 2012 tion in tion in 5:50 AM source source data data HCT 47.4 40.1 - % No No Sep 28 51.0 informa informa 2012 tion in tion in 5:50 AM source source data data MCV 86.5 79.0 - fl No No Sep 28 92.2 informa informa 2012 tion in tion in 5:50 AM source source data data MCH 29.0 25.6 - PG No No Sep 28 32.2 informa informa 2012 tion in tion in 5:50 AM source source data data MCHC 33.5 32.3 - g/dL No No Sep 28 36.5 informa informa 2012 tion in tion in 5:50 AM source source data data RDW 15.4 11.7 - % No No Sep 28 15.2 informa informa 2012 tion in tion in 5:50 AM source source data data PLT 216 140 - Thou/mm No No Sep 28 370 3 informa informa 2011 tion in tion in 5:50 AM source source data data MPV 10.5 8.7 - fl No No Sep 28 12.0 informa informa 2012 tion in tion in 5:50 AM source source data data GRANULO 58.1 34.0 - % No No Sep 28 CYTE% 69.5 informa informa 2012 tion in tion in 5:50 AM source source data data LYMPH% 27.5 20.0 - % No No Sep 28 53.0 informa informa 2012 tion in tion in 5:50 AM source source data data MONOCYT 12.2 5.0 - % No No Sep 28 E% 12.5 informa informa 2011 tion in tion in 5:50 AM source source data data EOSINOP 1.5 0.7 - % No No Sep 28 HIL% 6.0 informa informa 2012 tion in tion in 5:50 AM source source data data BASOPHI 0.3 0.0 - % No No Sep 28 L% 2.0 informa informa 2012 tion in tion in 5:50 AM source source data data IMM 0.4 0.0 - % No No Sep 28 GRAN% 0.7 informa informa 2012 tion in tion in 5:50 AM source source data data ABS 6.6 1.70 - Thou/mm No No Sep 28 NEUTROP 6.00 3 informa informa 2011 HIL # tion in tion in 5:50 AM source source data data NRBCS 0.0 No No No No Sep 28 informa informa informa informa 2012 tion in tion in tion in tion in 5:50 AM source source source source data data data data ETHANOL Observa Value Referen Units Interpr Notes Date tion ce etation Range SERUM No No No No Dec 22 informa informa informa informa 2012 tion in tion in tion in tion in 8:32 PM source source source source data data data data ETHANOL <10 0 - 10 mg/dL No No Dec 22 QUANT informa informa 2012 tion in tion in 8:32 PM source source data data COLLECT J. No No No No Dec 22 ED BY ALTON informa informa informa informa 2012 tion in tion in tion in tion in 8:32 PM source source source source data data data data TECH ID K. No No No No Dec 22 KIM informa informa informa informa 2012 tion in tion in tion in tion in 8:32 PM source source source source data data data data DRUG SCREEN URINE CAROLE Observa Value Referen Units Interpr Notes Date tion ce etation Range URINE No No No No Dec 22 informa informa informa informa 2012 tion in tion in tion in tion in 8:32 PM source source source source data data data data AMPHETA NEGATIV NEGATIV No No No Dec 22 MINES E E informa informa informa 2012 tion in tion in tion in 8:32 PM source source source data data data BARBITU NEGATIV NEGATIV No No No Dec 22 RATES E E informa informa informa 2011 tion in tion in tion in 8:32 PM source source source data data data COCAINE NEGATIV NEGATIV No No No Dec 22 METAB E E informa informa informa 2011 tion in tion in tion in 8:32 PM source source source data data data OPIATES NEGATIV NEGATIV No No No Dec 22 E E informa informa informa 2011 tion in tion in tion in 8:32 PM source source source data data data BENZODI NEGATIV NEGATIV No No No Dec 22 AZEPINE E E informa informa informa 2011 S tion in ti in ti in 8:32 PM source source source data data data OXYCODO NEGATIV NEGATIV No No No Dec 22 NE E E informa informa informa 2011 tion in tion in tion in 8:32 PM source source source data data data METHADO NEGATIV NEGATIV No No No Dec 22 NE E E informa informa informa 2011 ti in ti in ti in 8:32 PM source source source data data data CANNABI NEGATIV NEGATIV No No * * * Dec 22 NOIDS E E informa informa CAROLE 2011 in ti in DRUG 8:32 PM source source SCREEN data data TESTING * * SCREEN+ indicat es Presump tive Positiv e *Presum ptive Positiv e results are not confirm ed by GCMS.Th e submitt ed specime n was tested for the presenc e of the followi ngsubst ances at or above the indicat ed detecti on limit.A ll cutoffs are measure d in ng/ml:A mphetam gregorio >500 Barbitu rates >200 Benzodi azepine s >100Can nabinoi ds >100 Cocaine >150 Opiates >300Oxy codone >100 Methado ne >300Res ults for clinica l use only. ETHANOL Observa Value Referen Units Interpr Notes Date tion ce etation Range SERUM No No No No Nov 23 informa informa informa informa 2011 tion in tion in tion in tion in 5:30 PM source source source source data data data data ETHANOL <10 0 - 10 mg/dL No No Nov 23 QUANT informa informa 2011 in tion in 5:30 PM source source data data COLLECT GHADA No No No No Nov 23 ED BY LS informa informa informa informa 2012 tion in tion in tion in tion in 5:30 PM source source source source data data data data TECH ID SARTHAK No No No No Nov 23 R informa informa informa informa 2012 tion in tion in tion in tion in 5:30 PM source source source source data data data data COMP METAB PANEL Observa Value Referen Units Interpr Notes Date tion ce etation Range PLASMA No No No No Nov 23 informa informa informa informa 2012 tion in tion in tion in tion in 5:30 PM source source source source data data data data SODIUM 143 137 - mmol/L No No Nov 23 145 informa informa 2012 tion in tion in 5:30 PM source source data data POTASSI 3.9 3.5 - mmol/L No No Nov 23 UM 5.1 informa informa 2012 tion in tion in 5:30 PM source source data data CHLORID 105 100 - mmol/L No No Nov 23 E 108 informa informa 2012 tion in tion in 5:30 PM source source data data CO2 28 22 - 30 mmol/L No No Nov 23 TOTAL informa informa 2012 tion in tion in 5:30 PM source source data data GLUCOSE 124 65 - mg/dL No No Nov 23 110 informa informa 2012 tion in tion in 5:30 PM source source data data BUN 18 7 - 20 mg/dL No No Nov 23 informa informa 2012 tion in tion in 5:30 PM source source data data CREATIN 1.0 0.7 - mg/dL No No Nov 23 INE 1.4 informa informa 2012 tion in tion in 5:30 PM source source data data CALCIUM 9.2 8.4 - mg/dL No No Nov 23 10.2 informa informa 2012 tion in tion in 5:30 PM source source data data ANION 9 7 - 15 mmol/L No No Nov 23 GAP informa informa 2012 tion in tion in 5:30 PM source source data data ALK 58 38 - U/L No No Nov 23 PHOS 126 informa informa 2012 tion in tion in 5:30 PM source source data data AST 39 10 - 50 U/L No No Nov 23 (SGOT) informa informa 2011 tion in tion in 5:30 PM source source data data ALT 36 20 - 70 U/L No No Nov 23 (SGPT) informa informa 2012 tion in tion in 5:30 PM source source data data TOT 0.7 0.2 - mg/dL No No Nov 23 BILIRUB 1.0 informa informa 2011 IN tion in tion in 5:30 PM source source data data TOTAL 6.8 6.3 - g/dL No Nov 23 PROTEIN 8.2 informa informa 2012 tion in tion in 5:30 PM source source data data ALBUMIN 4.0 3.5 - g/dL No No Nov 23 5.0 informa informa 2012 tion in tion in 5:30 PM source source data data GFR >90 No mL/min No This Nov 23 ESTIMAT informa informa eGFR is 2012 ED tion in tion in NOT 5:30 PM source source FOR data data DRUG DOSE ADJUSTM ENTStag e of Kidney Disease eGFR1 >=90 mL/min2 60-893 30-594 15-295 <=14The Estimat ed Glomeru lar Filtrat ion Ratebas ed on CKD-EPI adjuste d for age, sex,and race is validat ed for ages 18-70 years. CBC WITH DIFF Observa Value Referen Units Interpr Notes Date tion ce etation Range WHOLEBL No No No No Nov 23 D informa informa informa informa 2011 tion in tion in tion in tion in 5:30 PM source source source source data data data data WBC 9.8 4.10 - Thou/mm No No Nov 23 10.80 3 informa informa 2011 tion in tion in 5:30 PM source source data data RBC 5.16 4.37 - Million No No Nov 23 5.74 /mm3 informa informa 2011 tion in tion in 5:30 PM source source data data HGB 14.4 13.7 - gm/dL No No Nov 23 17.5 informa informa 2011 tion in tion in 5:30 PM source source data data HCT 43.7 40.1 - % No No Nov 23 51.0 informa informa 2011 tion in tion in 5:30 PM source source data data MCV 84.7 79.0 - fl No No Lanre 19 92.2 informa informa 2012 tion in tion in 5:30 PM source source data data MCH 27.9 25.6 - PG No No [place] 19 32.2 informa informa 2012 tion in tion in 5:30 PM source source data data MCHC 33.0 32.3 - g/dL No No [place] 19 36.5 informa informa 2012 tion in tion in 5:30 PM source source data data RDW 14.1 11.7 - % No No [place] 19 15.2 informa informa 2012 tion in tion in 5:30 PM source source data data PLT 206 140 - Thou/mm No No [place] 19 370 3 informa informa 2012 tion in tion in 5:30 PM source source data data MPV 9.7 8.7 - fl No No [place] 19 12.0 informa informa 2012 tion in tion in 5:30 PM source source data data GRANULO 59.0 34.0 - % No No [place] 19 CYTE% 69.5 informa informa 2012 tion in tion in 5:30 PM source source data data LYMPH% 32.6 20.0 - % No No [place] 19 53.0 informa informa 2012 tion in tion in 5:30 PM source source data data MONOCYT 6.6 5.0 - % No No [place] 19 E% 12.5 informa informa 2012 tion in tion in 5:30 PM source source data data EOSINOP 1.3 0.7 - % No No [place] 19 HIL% 6.0 informa informa 2012 tion in tion in 5:30 PM source source data data BASOPHI 0.2 0.0 - % No No [place] 19 L% 2.0 informa informa 2012 tion in tion in 5:30 PM source source data data IMM 0.3 0.0 - % No No [place] 19 GRAN% 0.7 informa informa 2012 tion in tion in 5:30 PM source source data data ABS 5.8 1.70 - Thou/mm No No [place] 19 NEUTROP 6.00 3 informa informa 2012 HIL # tion in tion in 5:30 PM source source data data NRBCS 0.0 No No No No [place] 19 informa informa informa informa 2012 tion in tion in tion in tion in 5:30 PM source source source source data data data data DRUG SCREEN URINE CAROLE Observa Value Referen Units Interpr Notes Date tion ce etation Range URINE No No No No Nov 23 informa informa informa informa 2012 tion in tion in tion in tion in 3:44 PM source source source source data data data data AMPHETA NEGATIV NEGATIV No No No Nov 23 MINES E E informa informa informa 2011 tion in tion in tion in 3:44 PM source source source data data data BARBITU NEGATIV NEGATIV No No No Nov 23 RATES E E informa informa informa 2011 tion in tion in tion in 3:44 PM source source source data data data COCAINE NEGATIV NEGATIV No No No Nov 23 METAB E E informa informa informa 2011 tion in tion in tion in 3:44 PM source source source data data data OPIATES NEGATIV NEGATIV No No No Nov 23 E E informa informa informa 2011 tion in tion in tion in 3:44 PM source source source data data data BENZODI NEGATIV NEGATIV No No No Nov 23 AZEPINE E E informa informa informa 2011 S tion in tion in tion in 3:44 PM source source source data data data OXYCODO NEGATIV NEGATIV No No No Nov 23 NE E E informa informa informa 2011 tion in tion in tion in 3:44 PM source source source data data data METHADO NEGATIV NEGATIV No No No Nov 23 NE E E informa informa informa 2011 tion in tion in tion in 3:44 PM source source source data data data CANNABI NEGATIV NEGATIV No No * * * Nov 23 NOIDS E E informa informa CAROLE 2011 tion in tion in DRUG 3:44 PM source source SCREEN data data TESTING * * SCREEN+ indicat es Presump tive Positiv e *Presum ptive Positiv e results are not confirm ed by GCMS.Th e submitt ed specime n was tested for the presenc e of the followi ngsubst ances at or above the indicat ed detecti on limit.A ll cutoffs are measure d in ng/ml:A mphetam gregorio >500 Barbitu rates >200 Benzodi azepine s >100Can nabinoi ds >100 Cocaine >150 Opiates >300Oxy codone >100 Methado ne >300Res ults for clinica l use only.
--- OUTSIDE RECORDS SUMMARY | 2017-04-12 17:16 | External Medical Summary Rpt | CCD ---
Demographics Preferred Language Niuean Marital Status Unknown Mormonism Affiliation Unknown Race Unknown Ethnic Group Unknown Author Author , LUZ MARIA LOERA Address Unknown Phone luz Immunization Unable to retrieve immunization data due to connection failure with Immunization Registry. Please try again later.
== END 2017-04-12 17:15 | disposition home or self-care (01) ==
LOC: ER 16:31
DX: H16.8 Other keratitis (principal); B01.9 Varicella without complication; B02.31 Zoster conjunctivitis; F17.210 Nicotine dependence, cigarettes, uncomplicated